=== PATIENT | male | born 1960 | race Asian ===

== ENCOUNTER 2024-11-16 14:01 | Emergency (ER) | payer OTHER ==
[2024-11-16 16:13] VITALS: BP 135/85; PULSE 87; RESP 18; TEMP 98.6; BMI 21.4
[2024-11-16] MEDS: METHOCARBAMOL 750 MG TABLET PO ONE (16:52)
[2024-11-16] MEDS: KETOROLAC TROMETHAMINE 30 MG/1 ML VIAL IVPUSH ONE (16:52)
[2024-11-16] MEDS ORDERED: LORazepam 2 MG/ML SDV VIAL ONE (17:00)
[2024-11-16] MEDS ORDERED: ONDANSETRON 4 MG/2 ML VIAL ONE (17:00)
[2024-11-16] MEDS ORDERED: chlordiazePOXIDE HCL 25 MG CAPSULE ONE ×2 (17:00→18:42)
[2024-11-16] MEDS ORDERED: ACETAMINOPHEN 500 MG TABLET (FP) ONE (17:05)
[2024-11-16] MEDS: ACETAMINOPHEN 500 MG TABLET (FP) PO ONE (17:24)
[2024-11-16] MEDS: chlordiazePOXIDE HCL 25 MG CAPSULE PO ONE ×2 (17:24→19:09)
[2024-11-16] MEDS: SODIUM CHLORIDE 0.9% 1000 ML INFUS.BAG IV ONE (17:24)
[2024-11-16] MEDS: ONDANSETRON 4 MG/2 ML VIAL IVPUSH ONE (17:24)
[2024-11-16 17:37] LABS: HEMOGLOBIN 16.5 GM/dL (11.7-16.9); MCH 31.6 pg (25.7-33.7); MCHC 33.1 g/dl (32.0-35.9); MEAN CELL VOLUME 95.4 fl (80-96); MEAN PLT VOLUME 8.8 fl (7.5-11.1); PLATELET COUNT 264 10^3/uL (134-434); RBC 5.24 M/mm3 (4.00-5.60)
[2024-11-16 17:43] LABS: INR 1.04 (0.83-1.09)
[2024-11-16 17:53] LABS: POTASSIUM 3.6 mmol/L (3.5-5.1)
[2024-11-16 17:55] LABS: ALBUMIN 4.5 g/dl (3.4-5.0); BLOOD UREA NITROGEN 14.1 mg/dL (7-18); MAGNESIUM 1.8 mg/dL (1.8-2.4)
[2024-11-16 17:59] LABS: CREATININE 1.2 mg/dL (0.55-1.3)
[2024-11-16 18:00] LABS: BILIRUBIN,TOTAL 0.8 mg/dL (0.2-1); TOT PROT 8.2 g/dl (6.4-8.2)
[2024-11-16] MEDS ORDERED: LIDOCAINE 4% PATCH TP ONE (18:42)
[2024-11-16 18:45] LABS: HIV INTERPRETATION NEGATIVE (NEGATIVE)
[2024-11-16] MEDS: LIDOCAINE 4% PATCH TP ONE (19:08)
[2024-11-16] MEDS: KETOROLAC TROMETHAMINE 15 MG/ML VIAL IVPUSH ONE (19:10)
[2024-11-16] MEDS ORDERED: LIDOCAINE PATCH REMOVAL MC SCH (22:00)
== END 2024-11-16 19:35 | disposition home or self-care (01) ==
LOC: JER 14:01
PROC: 3E033GC Introduction of Other Therapeutic Substance into Peripheral Vein, Percutaneous Approach (ICD-10-PCS; principal; 2024-11-16)
PROC: 3E033GC Introduction of Other Therapeutic Substance into Peripheral Vein, Percutaneous Approach (ICD-10-PCS; 2024-11-16)
DX: M79.606 Pain in leg, unspecified (principal); F10.239 Alcohol dependence with withdrawal, unspecified
CPT/HCPCS: 36415; 80053; 83735; 85027; 85610; 86803; 87389; 93005; 93010; 99284-25